=== PATIENT | female | born 1985 | race Caucasian/White ===

== ENCOUNTER 2021-04-01 08:19 | Inpatient (IN) | payer OTHER ==
[~2021-04-01] VITALS: Ht 167.6 cm; Wt 104.0 kg
[2021-04-01 08:50] LABS: BASOPHILS ABSOLUTE AUTO 0.07 K/mm3 (0.00-0.23); BASOPHILS PERCENT AUTO 1 % (0-2); EOSINOPHILS ABSOLUTE AUTO 0.28 K/mm3 (0.00-0.68); EOSINOPHILS PERCENT AUTO 4 % (0-6); Hematocrit 33.9 % (33.0-51.0); Hemoglobin 10.2 g/dL (11.5-16.0); IMMATURE GRAN ABSOLUTE AUTO 0.04 K/mm3 (0.00-0.10); IMMATURE GRAN PERCENT AUTO 1 % (0-1); LYMPHOCYTES ABSOLUTE AUTO 0.97 K/mm3 (0.84-5.20); LYMPHOCYTES PERCENT AUTO 14 % (21-46); MONOCYTES ABSOLUTE AUTO 0.34 K/mm3 (0.16-1.47); MONOCYTES PERCENT AUTO 5 % (4-13); Mean Corpuscular HGB 31.2 pg (26.0-34.0); Mean Corpuscular HGB Conc 30.1 g/dL (31.5-36.5); Mean Corpuscular Volume 104 fL (80-100); Mean Platelet Volume 9.8 fL (9.1-12.4); NEUTROPHILS ABSOLUTE AUTO 5.22 K/mm3 (1.96-9.15); NEUTROPHILS PERCENT AUTO 76 % (41-73); Platelet Count 345 K/mm3 (150-400); RDW Coefficient Variation 19.9 % (11.7-14.2); RDW Standard Deviation 71.4 fL (35.1-46.3); Red Blood Cell Count 3.27 M/mm3 (3.80-5.20); White Blood Cell Count 6.92 K/mm3 (4.00-11.30)
[2021-04-01 09:06] LABS: Alanine Aminotransfer (ALT/SGP 104 U/L (12-78); Albumin, Blood 3.2 g/dL (3.4-5.0); Albumin/Globulin Ratio 0.8 (0.8-1.8); Alk Phos 61 U/L (50-136); Anion Gap 7 mmol/L (6-16); Aspartate Aminotrans (AST/SGOT 94 U/L (12-37); Bilirubin, Total 0.4 mg/dL (0.1-1.0); Blood Urea Nitrogen 7 mg/dL (8-24); CO2, Blood 24 mmol/L (21-32); Calcium, Blood 9.1 mg/dL (8.5-10.1); Chloride, Blood 106 mmol/L (98-108); Creatinine, Blood 0.59 mg/dL (0.40-1.00); Glomerular Filtration Rate >60 (60-); Glucose, Blood 117 mg/dL (70-99); Potassium, Blood 4.1 mmol/L (3.5-5.5); Sodium, Blood 137 mmol/L (136-145); Total Protein, Blood 7.2 g/dL (6.4-8.2)
[2021-04-01] MEDS ORDERED: Ativan1 MG (09:11)
[2021-04-01] MEDS ORDERED: POTA10T PO (09:12)
[2021-04-01] MEDS ORDERED: ONDA4 PO (09:12)
[2021-04-01] MEDS ORDERED: Magnesium30 MG PO (09:13)
[2021-04-01] MEDS ORDERED: IRON18 MG (09:14)
[2021-04-01] MEDS ORDERED: PYRI100 (09:14)
[2021-04-01] MEDS ORDERED: FOLI1 PO (09:15)
[2021-04-01] MEDS ORDERED: TRAZ50 (09:15)
[2021-04-01] MEDS ORDERED: MELATONIN5 M1 PO (09:15)
--- NOTE | 2021-04-01 19:16 | NUR ---
Patient is a 35 year old female with a history of alcohol abuse and hypokalemia who is admitted with epigastric pain radiating to back. Patient was initially presented at ER with abdominal pain mostly epigastric area. Per ER report , Ct shows acute pancreatic and lipase of 1010. Patient was transfered to medical floor for further evaluation and treatment. During admission assesstment, patient is alert and oriented x4 , complained of severe epigastric pain 9/10 , described pain as sharp and radiating to back. Reports anxiety and nausea . Reports that she came from [facility] for detox and lives with her and autistic daughter. Express willingness to detox but came with severe abdomen pain since yesterday. Reports drinking half gallon of Volka daily. Patient was oriented to the room and call light use. she is ambulatory independently on a steady gait. Fentayl and Dilaudid were given for pain management ,and it was effective. Zofran was given for nausea. Score 8 and 9 respectively on CIWA AND ativan was given, it was effective . Vital signs are stable . On room air , no SOB Noted. NPO AND continue IV NS infusing at 200 ml/hr . Call appropriately and call light within reach .Continue to monitor.
[2021-04-01 21:24] LABS: U Amphetamine Screen Not Detected; U Barbituate Screen DETECTED; U Benzodiazapine Screen DETECTED; U Buprenorphine Screen Not Detected; U Cannabinoids Screen Not Detected; U Cocaine Screen Not Detected; U Methadone Screen Not Detected; U Methamphetamine Screen Not Detected; U Opiates Screen Not Detected; U Oxycodone Screen Not Detected; U Phencyclidine Screen Not Detected; U Propoxyphene Screen Not Detected
[2021-04-01 21:48] LABS: Source, Urine Clean Catch
[2021-04-01 21:51] LABS: Appearance, Urine Clear (Clear); Bilirubin, Urine Neg (Neg); Blood, Urine Neg (Neg); Color, Urine Yellow (P-Yellow); Glucose Qualitative, Urine Neg (Neg); Ketones, Urine 2+ (Neg); Leukocyte Esterase, Urine 1+ (Neg); Nitrite, Urine Neg (Neg); Protein, Urine 1+ (Neg); Specific Gravity, Urine 1.025 (1.003-1.022); Urobilinogen, Urine 1+ (Normal)
[2021-04-01 22:15] LABS: Bacteria Many /hpf; Mucus Light (0-Heavy); Red Blood Cells, Urine Not Seen /hpf (0-2); Squamous Epithelial Cells Few /hpf (Few)
--- NOTE | 2021-04-02 00:51 | NUR ---
JAILER SUMMARY PATIENT STILL ANXIUOS, SHE IS ALSO IN PAIN. SHE HAD HER PAIN MED AND ATIVAN FOR THE WITHDRWAL. HER VITALS WERER OTHERWISE STABLE. WILL CONTINUE TO MONITOR HER.
[2021-04-02 05:57] LABS: BASOPHILS ABSOLUTE AUTO 0.06 K/mm3 (0.00-0.23); BASOPHILS PERCENT AUTO 1 % (0-2); EOSINOPHILS ABSOLUTE AUTO 0.35 K/mm3 (0.00-0.68); EOSINOPHILS PERCENT AUTO 5 % (0-6); Hemoglobin 9.2 g/dL (11.5-16.0); IMMATURE GRAN ABSOLUTE AUTO 0.03 K/mm3 (0.00-0.10); IMMATURE GRAN PERCENT AUTO 0 % (0-1); LYMPHOCYTES ABSOLUTE AUTO 1.15 K/mm3 (0.84-5.20); LYMPHOCYTES PERCENT AUTO 16 % (21-46); MONOCYTES ABSOLUTE AUTO 0.42 K/mm3 (0.16-1.47); MONOCYTES PERCENT AUTO 6 % (4-13); Mean Corpuscular HGB 31.3 pg (26.0-34.0); Mean Corpuscular HGB Conc 30.7 g/dL (31.5-36.5); Mean Corpuscular Volume 102 fL (80-100); Mean Platelet Volume 9.9 fL (9.1-12.4); NEUTROPHILS ABSOLUTE AUTO 5.19 K/mm3 (1.96-9.15); NEUTROPHILS PERCENT AUTO 72 % (41-73); Platelet Count 311 K/mm3 (150-400); RDW Coefficient Variation 19.8 % (11.7-14.2); RDW Standard Deviation 72.4 fL (35.1-46.3); Red Blood Cell Count 2.94 M/mm3 (3.80-5.20)
[2021-04-02 06:10] LABS: International Normalized Ratio 0.98; Prothrombin Time Results 10.3 Sec (9.7-11.5)
[2021-04-02 06:42] LABS: Alanine Aminotransfer (ALT/SGP 80 U/L (12-78); Albumin, Blood 2.9 g/dL (3.4-5.0); Albumin/Globulin Ratio 0.9 (0.8-1.8); Alk Phos 53 U/L (50-136); Anion Gap 7 mmol/L (6-16); Aspartate Aminotrans (AST/SGOT 60 U/L (12-37); Bilirubin, Total 0.4 mg/dL (0.1-1.0); Blood Urea Nitrogen 4 mg/dL (8-24); Bun/Creatinine Ratio 6.8 (12.0-20.0); CO2, Blood 24 mmol/L (21-32); Calcium, Blood 8.1 mg/dL (8.5-10.1); Chloride, Blood 110 mmol/L (98-108); Creatinine, Blood 0.59 mg/dL (0.40-1.00); Globulin, Blood 3.4 g/dL (2.2-4.0); Glomerular Filtration Rate >60 (60-); Glucose, Blood 102 mg/dL (70-99); Magnesium, Blood 2.1 mg/dL (1.6-2.4); Potassium, Blood 3.6 mmol/L (3.5-5.5); Sodium, Blood 141 mmol/L (136-145); Total Protein, Blood 6.3 g/dL (6.4-8.2)
--- NOTE | 2021-04-02 18:38 | NUR ---
Patient is alert and oriented x3 , able to make needs known. Admitted with acute pancreatic and alcohol withdrawal. c/o epigastric pain , and pain is managed iwth Dilaudid IV PRN and it was effective. Zofran was given for nausea and it was helpful. CIWA score was 8 , ativan 1 mg was given and it was effective. NPO and IV NS infusing at 200 ml/hr. Continue to monitor.
[2021-04-03 05:22] LABS: BASOPHILS ABSOLUTE AUTO 0.06 K/mm3 (0.00-0.23); BASOPHILS PERCENT AUTO 1 % (0-2); EOSINOPHILS ABSOLUTE AUTO 0.34 K/mm3 (0.00-0.68); EOSINOPHILS PERCENT AUTO 5 % (0-6); Hematocrit 29.8 % (33.0-51.0); Hemoglobin 9.1 g/dL (11.5-16.0); IMMATURE GRAN ABSOLUTE AUTO 0.05 K/mm3 (0.00-0.10); IMMATURE GRAN PERCENT AUTO 1 % (0-1); LYMPHOCYTES PERCENT AUTO 18 % (21-46); MONOCYTES ABSOLUTE AUTO 0.46 K/mm3 (0.16-1.47); MONOCYTES PERCENT AUTO 7 % (4-13); Mean Corpuscular HGB 31.9 pg (26.0-34.0); Mean Corpuscular HGB Conc 30.5 g/dL (31.5-36.5); Mean Corpuscular Volume 105 fL (80-100); Mean Platelet Volume 10.1 fL (9.1-12.4); NEUTROPHILS PERCENT AUTO 68 % (41-73); Platelet Count 314 K/mm3 (150-400); RDW Coefficient Variation 19.5 % (11.7-14.2); RDW Standard Deviation 74.4 fL (35.1-46.3); Red Blood Cell Count 2.85 M/mm3 (3.80-5.20); White Blood Cell Count 6.51 K/mm3 (4.00-11.30)
[2021-04-03 06:08] LABS: Alanine Aminotransfer (ALT/SGP 74 U/L (12-78); Albumin, Blood 2.9 g/dL (3.4-5.0); Albumin/Globulin Ratio 0.8 (0.8-1.8); Alk Phos 57 U/L (50-136); Anion Gap 7 mmol/L (6-16); Aspartate Aminotrans (AST/SGOT 54 U/L (12-37); Bilirubin, Total 0.3 mg/dL (0.1-1.0); Blood Urea Nitrogen 4 mg/dL (8-24); Bun/Creatinine Ratio 6.8 (12.0-20.0); CO2, Blood 22 mmol/L (21-32); Calcium, Blood 8.2 mg/dL (8.5-10.1); Chloride, Blood 112 mmol/L (98-108); Creatinine, Blood 0.59 mg/dL (0.40-1.00); Globulin, Blood 3.6 g/dL (2.2-4.0); Glomerular Filtration Rate >60 (60-); Glucose, Blood 91 mg/dL (70-99); Magnesium, Blood 2.3 mg/dL (1.6-2.4); Phosphorus, Blood 2.9 mg/dL (2.5-4.9); Potassium, Blood 3.8 mmol/L (3.5-5.5); Sodium, Blood 141 mmol/L (136-145); Total Protein, Blood 6.5 g/dL (6.4-8.2)
--- NOTE | 2021-04-03 18:30 | NUR ---
Patient is admitted for alcoholic pancreatic .Continue on CIWA and has been scoring 8.Ativan 2 mg iv was given for anxiety , it was effecive. Dilaudid given for abdomen pain , it was effective. c/o hemorroid , suppository order and given . Started on clinimix for eletrolytes replacement . vital signs are stable. Zofran was given for nausea , it was effective. Continue to monitor.
[2021-04-04 04:53] LABS: BASOPHILS ABSOLUTE AUTO 0.04 K/mm3 (0.00-0.23); BASOPHILS PERCENT AUTO 1 % (0-2); EOSINOPHILS ABSOLUTE AUTO 0.28 K/mm3 (0.00-0.68); EOSINOPHILS PERCENT AUTO 4 % (0-6); Hematocrit 30.8 % (33.0-51.0); Hemoglobin 9.2 g/dL (11.5-16.0); IMMATURE GRAN ABSOLUTE AUTO 0.04 K/mm3 (0.00-0.10); IMMATURE GRAN PERCENT AUTO 1 % (0-1); LYMPHOCYTES ABSOLUTE AUTO 1.23 K/mm3 (0.84-5.20); LYMPHOCYTES PERCENT AUTO 19 % (21-46); MONOCYTES PERCENT AUTO 8 % (4-13); Mean Corpuscular HGB 31.2 pg (26.0-34.0); Mean Corpuscular HGB Conc 29.9 g/dL (31.5-36.5); Mean Corpuscular Volume 104 fL (80-100); Mean Platelet Volume 9.9 fL (9.1-12.4); NEUTROPHILS ABSOLUTE AUTO 4.27 K/mm3 (1.96-9.15); NEUTROPHILS PERCENT AUTO 67 % (41-73); Platelet Count 320 K/mm3 (150-400); RDW Coefficient Variation 19.2 % (11.7-14.2); RDW Standard Deviation 74.3 fL (35.1-46.3); Red Blood Cell Count 2.95 M/mm3 (3.80-5.20); White Blood Cell Count 6.36 K/mm3 (4.00-11.30)
[2021-04-04 05:21] LABS: Alanine Aminotransfer (ALT/SGP 72 U/L (12-78); Albumin, Blood 2.8 g/dL (3.4-5.0); Albumin/Globulin Ratio 0.8 (0.8-1.8); Alk Phos 56 U/L (50-136); Anion Gap 6 mmol/L (6-16); Aspartate Aminotrans (AST/SGOT 43 U/L (12-37); Bilirubin, Total 0.3 mg/dL (0.1-1.0); Blood Urea Nitrogen 5 mg/dL (8-24); Bun/Creatinine Ratio 8.4 (12.0-20.0); CO2, Blood 22 mmol/L (21-32); Calcium, Blood 8.5 mg/dL (8.5-10.1); Chloride, Blood 113 mmol/L (98-108); Creatinine, Blood 0.59 mg/dL (0.40-1.00); Globulin, Blood 3.7 g/dL (2.2-4.0); Glomerular Filtration Rate >60 (60-); Glucose, Blood 105 mg/dL (70-99); Potassium, Blood 3.9 mmol/L (3.5-5.5); Sodium, Blood 141 mmol/L (136-145); Total Protein, Blood 6.5 g/dL (6.4-8.2)
--- NOTE | 2021-04-04 05:39 | NUR ---
SHIFT SUMMARY PT REPORTING THAT HE ABD PAIN SLIGHTLY IMPROVED BUT REMAINS VERY ANXIOUS. CIWA SCORES 8-11. PT WAKING IN THE NIGHT DIAPHORETIC, SHAKY, AND ANXIOUS. PT CONTINUES TO REQUIRE FREQUENT IV DILAUDID AND ATIVAN. ANGELY FROM [facility] CALLED AND WAS UPDATED. PT EAGER TO CONTINUE TREATMENT AND WORK TOWARDS SOBRIETY. VITAL SIGNS STABLE. CLINIMIX AND NS INFUSING. WILL CONTINUE TO MONITOR.
--- NOTE | 2021-04-04 16:39 | NUR ---
SHIFT SUMMARY CIWAS IMPROVED FROM 11 THIS AM TO 8&9 THIS AFTERNOON. DILADID DISCONTINUED & TORADOL STARTED FOR PAIN. PT STATES ABD PAIN HAS DECREASED TODAY. CONTINUES TO COMPLAIN OF PAIN FROM HER HEMORRHOIDS WITH BMS. BABY WIPES PROVIDED FOR COMFORT. CLINIMIX CONTINUES TO RUN CONT. OVREALL, PT IS VERY ANXIOUS & TEARFUL AT TIMES. BMS HAVE BECOME LOOSE. NO OTHER ACUTE CHANGES IN ASSESSMENT AT THIS TIME. VS REVIEWED. PT RESTING IN BED. CALL LIGHT IN REACH.
--- NOTE | 2021-04-05 06:38 | NUR ---
SHIFT SUMMARY PT IS AA&OX4. INDEPENDENT IN ROOM. NO ACUTE CHANGES ON THIS SHIFT. PT HAD FREQUENT ANXIETY EPISODES ON THIS SHIFT. PRN MEDS ADMINISTERED. PT C/O PAIN ON IV SITE. SAFETY MEASURES IN PLACE. WILL CONTINUE TO MONITOR.
--- NOTE | 2021-04-05 10:57 | NUR ---
Pt has tried a variety of fad diets over the years in an attempt to reduce IBS symptoms. Discussed role of stress in worsening symptoms and reviewed tips for dietary management. Encouraged pt to keep a food diary and make one change at a time to identify what foods worsen/alleviate symptoms. Discussed that some pts find benefits from limiting lactose, increasing fiber, and/or following a lower fat diet. Pt was interested in discussing FODMAP diet since several people have recommended it to her. Informed pt that this diet is a short term elimination diet with a long reintroduction period to determine if specific foods may worsen symptoms. Discussed that this diet is difficult to follow and may be even more difficult if living somewhere with limited food choices. Shared FODMAP diet hallie with pt to help follow diet if she ends up trying diet. Discussed the impact alcohol has on the GI tract and encouraged pt that symptoms may improve with alcohol cessation. Pt reported that her first episode of pancreatitis occured before her heavy alcohol use began, and she reported that she often has yellow stool in-between acute pancreatitis flares. Pt may benefit in future from further GI workup. Pt reported having problems with food most of her life and feels overwhelmed by current issues. Good compliance with dietary recommendations is expected if pt has adequate support.
--- NOTE | 2021-04-05 11:00 | NUR ---
PT ASKING TO GO BACK TO [facility] PT INFORMED THAT ATIVAN ORDER WAS CHANGED FROM Q2 TO Q4 THIS AM. PT STATES SHE WANTS TO GO BACK TO [facility] SINCE SHE IS TOLERATING FOOD NOW. DR. CARDENAS NOTIFIED & STATED WE CAN SEND HER HOME TODAY.
--- NOTE | 2021-04-05 12:31 | NUR ---
PT ASKING TO GO HOME INSTEAD OF TO [facility] PT INFORMED THAT THERE ARE NO VISITORS ALLOWED AT [facility] RIGHT NOW. PT STARTED CRYING AND STATED SHE NEEDS TO GO HOME THEN. THIS RN EUCATED THE PT THAT IT MAY BE BETTER FOR HER DAUGHTER AND FAMILY IN THE LONG RUN IF SHE FINISHES REHAB FIRST. PT TEARFUL STATING "ITS JUST TOO MUCH" AND " ALL THE PRESSURE IS ON HER". THIS RN INSTRUCTED THAT SHE MUST MAKE THE DECISION. PT STATES SHE WILL BE GOING HOME TODAY INSTEAD OF BACK TO [facility]. MESSAGE LEFT WITH DR. CARDENAS TO CALL THIS RN BACK FOR AN UPDATE.
[2021-04-05] MEDS ORDERED: HYDCOR2.5C PR (12:34)
[2021-04-05] MEDS ORDERED: NICO21TP TOP (12:35)
[2021-04-05] MEDS ORDERED: PANT40 PO (12:36)
--- NOTE | 2021-04-05 13:38 | NUR ---
DISCHARGED DELAYED DR. CARDENAS CALLED BACK AND STATED THE PT'S CIWAS AND USE OF ATIVAN IS TOO OFTEN TO GO HOME RATHER THAN TO REHAB. PT UNFORTUNATELY LOST HER BED AT [facility] WHEN SHE DECIDED SHE WANTED TO GO HOME INSTEAD OF BACK THERE. PLAN IS NOT FOR PT TO STAY ANOTHER NIGHT. PT CRYING IN ROOM ABOUT SITUATION. ON THE PHONE WITH HER .
[2021-04-05] MEDS ORDERED: Prozac20 MG PO (14:18)
--- NOTE | 2021-04-05 14:20 | NUR ---
PLAN TO DC TODAY DR. CARDENAS CAME IN TO TALK WITH THE PT. NEW PLAN TO GO HOME TODAY AND FOLLOW UP WITH HER PRIMARY ON SUNDAY. NEW PRESCRIPTION FOR FLUOXETINE HARD SCRIPT GIVEN TO PT.
--- NOTE | 2021-04-05 17:20 | NUR ---
DISCHARGE PT DISCHARGED AT 1645. PT GIVEN HARD SCRIPT AND OTHER MEDS FAXED TO PREFERED PHARMACY. PT ANXIETY DECREASED AFTER LEARNING SHE WAS GOING HOME. NO OTHER ACUTE CHANGES IN ASSESSMENT PRIOR TO DC. PT WHEELED OUT BY [facility] AND PICKED UP BY HER . FOLLOW UP APPOINTMENT SCHEDULED BY PT FOR SUNDAY.
== END 2021-04-05 16:55 | disposition home or self-care (01) | DRG 439 ==
LOC: ER 08:19 → MEDS 12:55 → ENPENDDIS 04-05 12:51 → MEDS 04-05 16:55
PROVIDERS: Internal Medicine; Nurse Practitioner Acute Care; Physician Assistant; ADMIT Internal Medicine
DX: K85.20 Alcohol induced acute pancreatitis without necrosis or infection (principal); F10.239 Alcohol dependence with withdrawal, unspecified; E83.51 Hypocalcemia; R74.01 Elevation of levels of liver transaminase levels; F17.210 Nicotine dependence, cigarettes, uncomplicated; D50.9 Iron deficiency anemia, unspecified; K64.9 Unspecified hemorrhoids; D75.89 Other specified diseases of blood and blood-forming organs; K21.9 Gastro-esophageal reflux disease without esophagitis; F41.9 Anxiety disorder, unspecified; D63.8 Anemia in other chronic diseases classified elsewhere; Z79.899 Other long term (current) drug therapy; Z88.5 Allergy status to narcotic agent; Z88.8 Allergy status to other drugs, medicaments and biological substances
CPT/HCPCS: 36415; 74177; 80053; 81001; 81025; 82330; 83690; 83735; 84100; 84443; 85025; 85610; 94660; 96365-59; 96366; 96375; 96376; 99285-25; A9270; C9113; J1170; J1885; J2060; J2405; J3010; J3411; J3475; J7030; J7042; Q9967